=== PATIENT | female | born 1990 | race Caucasian/White ===

== ENCOUNTER 2025-03-28 01:50 | Inpatient (IN) | payer SELFPAY ==
[2025-03-28] VITALS (26 sets, daily range): BP systolic 90–138; BP diastolic 44–77; PULSE 51–92; RESP 15–24; TEMP 36.3–37.2; O2SAT 90–100
--- NOTE | ~2025-03-28 | CT_ITS ---
CORRECTED REPORT corrected patients to 1991 [facility] 03/28/2025 This report was recreated on 03/28/25. Original report was CT abdomen pelvis w con Clinical History: Left flank pain . Comparison: None Technique: Axial images lung bases to symphysis pubis 100 mL Omnipaque 350 Coronal, sagittal reformats CT images acquired with automatic exposure control for dose reduction DLP: 398 mGy-cm Findings: Lung bases: Clear. Visualized heart and pericardium: Unremarkable. Liver: Unremarkable. Gallbladder: Unremarkable. Spleen: Unremarkable. Pancreas: Unremarkable. Adrenal glands: Unremarkable. Kidneys: Right kidney- No hydronephrosis. No renal stones. Left kidney- Hydronephrosis. No renal stones. Distal esophagus/stomach: Unremarkable. Small bowel loops: Normal caliber and wall thickness. Colon: Normal caliber and wall thickness. Normal RLQ appendix. Nodes: No enlarged nodes. Peritoneum: No ascites. No free air. Urinary bladder: 3 mm stone left UVJ. Uterus: Unremarkable. Adnexa: No masses. Trace pelvic free fluid. Bones: No acute bony abnormality. Soft tissues: Unremarkable. Aorta: No aneurysm or dissection. IVC: Unremarkable. Main portal vein/SMV/splenic vein: Patent. IMPRESSION: 1. Obstructing 3 mm stone left UVJ. Reviewed, dictated and finalized at location R.
--- NOTE | ~2025-03-28 | XR_ITS ---
EXAMINATION: XR retrograde pyelo w/stent LT DATE: 03/28/2025 08:35 INDICATION: Left flank pain. Cystoscopy. TECHNIQUE: 3 fluoroscopic images of the abdomen and pelvis were obtained during procedure performed by Dr. Sierra. Radiologist was not present for the imaging or procedure. The amount of fluoroscopy time used during this procedure was 0.2 minutes. Total DAP was 0.132 mGym^2. COMPARISON: CT dated 03/28/2025 FINDINGS: Initial image demonstrates a wire advanced retrograde along the left ureter into the left renal pelvis. Subsequent images demonstrate placement of a left intraureteral stent with loops formed in the left renal pelvis and in the bladder. There is some contrast within the bladder related to the earlier c ontrast-enhanced CT. IMPRESSION: 1. Patient of a left intraureteral stent which is in expected position. See procedure note for further detail. Reviewed, dictated and finalized at location A. IMPRESSION: 1. Patient of a left intraureteral stent which is in expected position. See pro cedure note for further detail.
[2025-03-28] MEDS: cefTRIAXone 2 GM in SODIUM CHLORIDE 0.9% IV 100 ML 200 ML IVPB (03:50)
[2025-03-28 04:28] LABS: Hematocrit 36.5 % (37.0-47.0); Hemoglobin 12.7 g/dL (12.0-15.0); INR 1.0; Immature Granulocyte Percent A 0.5 % (0-0.5); Lymphocytes Absolute Auto 2.65 K/mm3 (0.9-3.2); Mean Corpuscular HGB Conc 34.8 g/dl (32-36); Mean Corpuscular Hemoglobin 31.0 pg (26-34); Mean Corpuscular Volume 89.0 fl (80-100); Nucleated Red Blood Cells Absolute Auto 0.000 K/mm3 (0.0-0.012); Nucleated Red Blood Cells Perc 0.0 % (0.0-0.2); Partial Thromboplastin Time 26.8 Seconds (22.3-36.8); Platelet Count Result 351 k/mm3 (150-375); Prothrombin Time 13.4 Seconds (11.1-14.7); Red Blood Count 4.10 M/mm3 (4.2-5.4); White Blood Count 15.4 K/mm3 (4.5-10.0)
[2025-03-28 04:29] LABS: Alanine Aminotransferase 27 U/L (6-35); Albumin Level 4.5 g/dL (3.5-5.1); Alkaline Phosphatase 121 U/L (38-126); Anion Gap 18 mmol/L (4-12); Aspartate Amino Transferase 30 U/L (14-36); Beta HCG Quantitative < 2.39 mIU/ML; Bilirubin,Total 0.4 mg/dL (0.2-1.3); Blood Urea Nitrogen 14 mg/dL (7-17); Calcium 9.2 mg/dL (8.4-10.2); Carbon Dioxide 13 mmol/L (22-30); Chloride 108 mmol/L (98-107); Estimated Glomerular Filt Rate > 60; Glucose 194 mg/dL (65-110); Sodium 139 mmol/L (137-145); Total Protein 7.7 g/dL (6.3-8.2)
[2025-03-28 04:31] LABS: Potassium 2.7 mmol/L (3.4-5.0)
--- NOTE | 2025-03-28 04:33 | ED_ITS ---
HPI - Abdominal Pain General Chief Complaint: Abdominal Pain Stated Complaint: Abd Pain History of Present Illness HPI narrative: Patient seen and evaluated during EMR down time in the emergency department. Please refer to the physical down time paper charting for complete dictation of patient's care and clinical course. Review of Systems 2 Review of Systems: As reviewed in the physical paper turning during down time Exam 2 Narrative: GENERAL: Acute moderate distress complaining of significant pain her back and left-sided flank. HEAD: [Normocephalic, atraumatic.] EYES: [PERRLA and EOMI.] ENT: Nares clear, no rhinorrhea or epistaxis. Mucous membranes moist. NECK: Supple. CHEST: [Clear to auscultation. No respiratory distress.] HEART: [Regular rate and rhythm]. No murmur heard. [Normal peripheral pulses.] ABDOMEN: [Soft, nondistended], left CVA tenderness, no overlying skin changes or deformity. No upper abdominal or lower quadrant tenderness., [No rigidity or guarding] EXTREMITIES: Normal range of motion. [No edema.] SKIN: Warm, dry, no rash. NEURO: [No focal deficits]. Alert and oriented [x3.] PSYCH: [Normal mood and affect.] Course Vital Signs Vital signs: Vital Signs Temperature 36.5 C 03/28/25 02:15 Pulse Rate 78 03/28/25 02:15 Respiratory Rate 24 H 03/28/25 02:15 Blood Pressure 111/70 03/28/25 02:15 Pulse Oximetry 98 03/28/25 02:15 Temperature 36.5 C 03/28/25 02:15 Pulse Rate 78 03/28/25 02:15 Respiratory Rate 24 H 03/28/25 02:15 Blood Pressure 90/44 L 03/28/25 06:50 Pulse Oximetry 100 03/28/25 06:50 MDM - Abdominal Pain MDM Narrative Medical decision making narrative: Patient seen and evaluated during EMR down time in the emergency department. Please refer to the physical down time paper charting for complete dictation of patient's care and clinical course. Patient CT scan shows obstructing 3 mm stone in the left UVJ. Patient had improvement in pain after Toradol and morphine as well as fluids. Appear septic with elevated lactic acid of 6.0 in white count of 15.4. Bacteria and white blood cells in the urine. Started on Rocephin. Urology consulted for stent placement and further care. Spoke to Dr. Palomino. Patient made NPO for acute add-on stent case this morning, will remain in the emergency department to go the operating room this morning. Patient care signed out to morning physician pending OR. Lab Data 03/28/25 02:42 03/28/25 02:42 Labs: Lab Results 03/28/25 03/28/25 Range/Units 02:42 03:35 WBC 15.4 H (4.5-10.0) K/mm3 RBC 4.10 L (4.2-5.4) M/mm3 Hgb 12.7 (12.0-15.0) g/dL Hct 36.5 L (37.0-47.0) % MCV 89.0 (80-100) fl MCH 31.0 (26-34) pg MCHC 34.8 (32-36) g/dl RDW 12.2 (11.5-14.5) % Plt Count 351 (150-375) k/mm3 MPV 9.4 (7.4-10.4) fl Immature Gran % (Auto) 0.5 (0-0.5) % Neut % (Auto) 75.5 H (45.5-73.1) % Lymph % (Auto) 17.3 L (18.3-44.2) % [place] % (Auto) 5.9 (2.6-8.5) % Eos % (Auto) 0.5 (0-4.4) % Baso % (Auto) 0.3 (0.2-1.2) % Lymph # (Auto) 2.65 (0.9-3.2) K/mm3 [place] # (Auto) 0.9 H (0.1-0.6) K/mm3 Eos # (Auto) 0.1 (0-0.3) K/mm3 Baso # (Auto) 0.0 (0.0-0.1) K/mm3 Abs Immat Gran (auto) 0.08 H (0.00-0.031) K/mm3 Absolute Neuts (auto) 11.6 H (1.3-6.7) K/mm3 Absolute Nucleated RBC 0.000 (0.0-0.012) K/mm3 Nucleated RBC % 0.0 (0.0-0.2) % PT 13.4 (11.1-14.7) Seconds INR 1.0 APTT 26.8 (22.3-36.8) Seconds Sodium 139 (137-145) mmol/L Potassium 2.7 L* (3.4-5.0) mmol/L Chloride 108 H (98-107) mmol/L Carbon Dioxide 13 L (22-30) mmol/L Anion Gap 18 H (4-12) mmol/L BUN 14 (7-17) mg/dL Creatinine 0.69 L (0.7-1.0) mg/dL Estim Creat Clear Calc Not Reportable Estimated GFR > 60 (59 - ) Glucose 194 H (65-110) mg/dL Lactic Acid 6.0 H* (0.7-2.0) mmol/L Calcium 9.2 (8.4-10.2) mg/dL Total Bilirubin 0.4 (0.2-1.3) mg/dL AST 30 (14-36) U/L ALT 27 (6-35) U/L Alkaline Phosphatase 121 (38-126) U/L Total Protein 7.7 (6.3-8.2) g/dL Albumin 4.5 (3.5-5.1) g/dL Beta HCG, Quant < 2.39 mIU/ML Urine Color Yellow (Yellow) Urine Appearance Cloudy H (Clear) Urine pH 5.0 (5.0-9.0) Ur Specific [place] 1.026 (1.001-1.035) Urine Protein Trace (Negative) mg/dL Urine Glucose (UA) Negative (Negative) mg/dL Urine Ketones 4+ H (Negative) mg/dL Ur Blood (Man) 2+ H (Negative) Urine Nitrate Negative (Negative) Urine Bilirubin Negative (Negative) Urine Urobilinogen 0.2 (<2.0) mg/dL Leukocyte Esterase Rfl 1+ H (Negative) EVITA/UL Urine RBC 11-20 H (0-2) /hpf Urine WBC 11-20 H (0-3) /hpf Ur Squamous Epith Cells Many H (Few) /hpf Urine Bacteria 2+ H /hpf Urine Casts 0-2 Critical Care Time Critical Care Time Critical Care Time: Yes Total Critical Care Time: 35 Discharge Plan Discharge Clinical Impression: Hydronephrosis with renal calculous obstruction, Acidosis, lactic, Leukocytosis, UTI (urinary tract infection) Patient Disposition: Still a Patient Condition: Stable Time of Disposition: 06:00
[2025-03-28 04:38] LABS: Add Urine Microscopic? YES; Appearance Urine Cloudy (Clear); Glucose Urine UA Negative (Negative); Leukocyte Esterase Ur 1+ LEU/UL (Negative); Nitrate Urine Negative (Negative); Non Pathogenic Casts 0-2; Specific Grav Ur 1.026 (1.001-1.035)
--- NOTE | 2025-03-28 05:56 | PC.NURSE ---
blood cultures ordered after iv abx ordered/given during down time. EDP Aware and still would like blood cultures to be obtained.
[2025-03-28] MEDS: SODIUM CHLORIDE 0.9% IV 1,000 ML 999 ML IV CONT ×2 (06:04)
--- NOTE | 2025-03-28 07:14 | P.HP_ITS ---
H&P: HPI History of Present Illness Date/Time: 03/28/25 07:14 Chief Complaint: left flank pain Narrative: Patient is a 34-year-old female without prior significant urological history and without history of urolithiasis who presents the emergency department acute left renal colic. She denies fevers chills gross hematuria has had some irritable voiding symptoms. Imaging demonstrates a 3mm left distal ureteral calculus. Urinalysis appears contaminated but may suggest urinary tract infection. Blood work is notable for elevated lactic acid and hypokalemia. Review of Systems Review of Systems: All systems reviewed & are unremarkable except as noted in HPI and below Cardiovascular: Cardiovascular: Denies chest pain, Denies lightheadedness, Denies palpitations and Denies dyspnea Respiratory: Respiratory: Denies dyspnea Gastrointestinal: Gastrointestinal: Denies diarrhea, Denies nausea and Denies vomiting Genitourinary: Genitourinary: Denies hematuria and Denies dysuria Endocrine: Endocrine: Denies palpitations Meds Vital Signs Vital Signs - 24 hr 03/28/25 02:15 03/28/25 06:49 03/28/25 06:50 Temperature 97.7 F Pulse Rate 78 Respiratory Rate 24 H Blood Pressure 111/70 90/44 L Pulse Oximetry 98 90 100 Exam Const: General: no acute distress Resp: Effort & Inspection: normal respiratory effort GI: Inspection: non-distended GI Palp: No abdominal tenderness and No Guarding due to palpation present (GI) Auscultation: normal bowel sounds H&P: Results Labs Labs: Short CBC 03/28/25 Range/Units 02:42 WBC 15.4 H (4.5-10.0) K/mm3 Hgb 12.7 (12.0-15.0) g/dL Hct 36.5 L (37.0-47.0) % Plt Count 351 (150-375) k/mm3 BMP 03/28/25 02:42 Sodium 139 Potassium 2.7 L* Chloride 108 H Carbon Dioxide 13 L BUN 14 Creatinine 0.69 L Glucose 194 H Calcium 9.2 Liver Function 03/28/25 Range/Units 02:42 Total Bilirubin 0.4 (0.2-1.3) mg/dL AST 30 (14-36) U/L ALT 27 (6-35) U/L Alkaline Phosphatase 121 (38-126) U/L Albumin 4.5 (3.5-5.1) g/dL Urine 03/28/25 Range/Units 03:35 Urine Color Yellow (Yellow) Urine Appearance Cloudy H (Clear) Urine pH 5.0 (5.0-9.0) Ur Specific [place] 1.026 (1.001-1.035) Urine Protein Trace (Negative) mg/dL Urine Glucose (UA) Negative (Negative) mg/dL Assessment and Plan Assessment and plan (1) Hydronephrosis with renal calculous obstruction: Code(s): N13.2 - Hydronephrosis with renal and ureteral calculous obstruction Status: Acute (2) Acidosis, lactic: Code(s): E87.20 - Acidosis, unspecified Status: Acute (3) UTI (urinary tract infection): Code(s): N39.0 - Urinary tract infection, site not specified Status: Acute Assessment and Plan: * Cystoscopy, left ureteroscopy with stone extraction, possible laser lithotripsy, retrograde pyelogram and stent placement
--- NOTE | 2025-03-28 07:18 | WPDHPUPDATE1 ---
History and Physical Update Update Date/Time: 03/28/25 07:18 History and Physical has been reviewed, including an updated exam of the patient. There are NO changes in the patient's condition. Risks, benefits, and alternatives have been discussed and questions answered. Patient agrees to proceed with procedure.
[2025-03-28] MEDS: LACTATED RINGERS 1,000 ML 30 ML IV CONT ×2 (08:02→11:00)
--- NOTE | 2025-03-28 08:10 | P.PNAN_ITS ---
Anes - Initial Pre Proc Eval Procedure: Operation Date: 03/28/25 08:00 Proposed Procedures p Cystoscopy, Possible Left Retrograde Pyelogram, Possible Left Stone Extraction, Possible Left Stent Placement, Possible Left Holmium Laser Lithotripsy(Left) - Elfego Sierra MD Date/Time: 03/28/25 08:10 Surgeon: Parker Palomino MD Pre Op Diagnosis: Abd Pain Patient Data Age: 34 Gender: F Height: Weight: Last Vital Signs Temp 36.5 C 03/28/25 02:15 Pulse 78 03/28/25 02:15 Resp 24 H 03/28/25 02:15 BP 110/71 03/28/25 07:31 Pulse Ox 99 03/28/25 07:31 Allergies Allergy/AdvReac Type Severity Reaction Status Date / Time No Known Allergies Allergy Verified 03/28/25 07:23 Laboratory Tests 03/28/25 03/28/25 03/28/25 02:42 03:35 07:18 WBC 15.4 H K/mm3 (4.5-10.0) RBC 4.10 L M/mm3 (4.2-5.4) Hgb 12.7 g/dL (12.0-15.0) Hct 36.5 L % (37.0-47.0) MCV 89.0 fl (80-100) MCH 31.0 pg (26-34) MCHC 34.8 g/dl (32-36) RDW 12.2 % (11.5-14.5) Plt Count 351 k/mm3 (150-375) MPV 9.4 fl (7.4-10.4) Immature Gran % (Auto) 0.5 % (0-0.5) Neut % (Auto) 75.5 H % (45.5-73.1) Lymph % (Auto) 17.3 L % (18.3-44.2) [place] % (Auto) 5.9 % (2.6-8.5) Eos % (Auto) 0.5 % (0-4.4) Baso % (Auto) 0.3 % (0.2-1.2) Lymph # (Auto) 2.65 K/mm3 (0.9-3.2) [place] # (Auto) 0.9 H K/mm3 (0.1-0.6) Eos # (Auto) 0.1 K/mm3 (0-0.3) Baso # (Auto) 0.0 K/mm3 (0.0-0.1) Abs Immat Gran (auto) 0.08 H K/mm3 (0.00-0.031) Absolute Neuts (auto) 11.6 H K/mm3 (1.3-6.7) Absolute Nucleated RBC 0.000 K/mm3 (0.0-0.012) Nucleated RBC % 0.0 % (0.0-0.2) PT 13.4 Seconds (11.1-14.7) INR 1.0 APTT 26.8 Seconds (22.3-36.8) Sodium 139 mmol/L (137-145) Potassium 2.7 L* mmol/L (3.4-5.0) Chloride 108 H mmol/L (98-107) Carbon Dioxide 13 L mmol/L (22-30) Anion Gap 18 H mmol/L (4-12) BUN 14 mg/dL (7-17) Creatinine 0.69 L mg/dL (0.7-1.0) Estim Creat Clear Calc Not Reportable Estimated GFR > 60 (59 - ) Glucose 194 H mg/dL (65-110) Lactic Acid 6.0 H* mmol/L 2.3 H mmol/L (0.7-2.0) (0.7-2.0) Calcium 9.2 mg/dL (8.4-10.2) Total Bilirubin 0.4 mg/dL (0.2-1.3) AST 30 U/L (14-36) ALT 27 U/L (6-35) Alkaline Phosphatase 121 U/L (38-126) Total Protein 7.7 g/dL (6.3-8.2) Albumin 4.5 g/dL (3.5-5.1) Beta HCG, Quant < 2.39 mIU/ML Urine Color Yellow (Yellow) Urine Appearance Cloudy H (Clear) Urine pH 5.0 (5.0-9.0) Ur Specific [place] 1.026 (1.001-1.035) Urine Protein Trace mg/dL (Negative) Urine Glucose (UA) Negative mg/dL (Negative) Urine Ketones 4+ H mg/dL (Negative) Ur Blood (Man) 2+ H (Negative) Urine Nitrate Negative (Negative) Urine Bilirubin Negative (Negative) Urine Urobilinogen 0.2 mg/dL (<2.0) Leukocyte Esterase Rfl 1+ H EVITA/UL (Negative) Urine RBC 11-20 H /hpf (0-2) Urine WBC 11-20 H /hpf (0-3) Ur Squamous Epith Cells Many H /hpf (Few) Urine Bacteria 2+ H /hpf Urine Casts 0-2 Patient hx anesthesia problems: none Family hx anesthesia problems: none Results Review: All pre-operative results and documents have been reviewed as part of the pre- operative evaluation. Anes - Eval Final PreProcedure Day of Procedure 03/28/25 08:10 Patient weight: obese Heart: regular rate and rhythm Lungs: clear to auscultation Airway: Mallampati scale class II Neurological: alert and oriented Last oral intake: >/= 8 hours ASA classification: III Emergent: yes Anesthetic plan: proceed Anesthesia type and monitoring: general GIVS and standard monitoring Results Review: All pre-operative results and documents have been reviewed as part of the pre- operative evaluation. Informed Consent: The patient's anesthetic plan and its attendant risks and benefits were discussed with the patient/family/POA. Questions were solicited and answers provided to the satisfaction of the patient/family/POA.
--- NOTE | 2025-03-28 08:30 | S_PTH ---
PATIENT: Yessenia Sellers LOC: [id number] U#:[id number] AGE/SX: 34/F ROOM: 301 RE03/28/[address]: Elfego Sierra MD : 1990 BED: 01 DIS: 03/28/2025 SPEC #: [id number] RECD: 03/28/25 09:45 STATUS: REINA REQ #: [id number] DIANA: 03/28/25 08:[address]: Elfego Sierra DEPT: [facility] Surgical RECD BY: Mckayla Mtz ENTERED: 03/28/25 09:45 SP TYPE: Surgical OTHR DR: MD Parker Arroyo MD UNKNOWN,DOCTOR Tissues: A - Stone Procedures: Gross Exam Level 1 Crystalline Analysis
[2025-03-28] MEDS: LIDOCAINE 2% GEL UROJET 10 ML PKG MUCOUS MEM (08:32)
--- NOTE | 2025-03-28 08:32 | W.PM.PROC2 ---
Procedure Note - Detailed Date of Procedure 03/28/25 Pre-op Diagnosis Left ureteral stone Post-op Diagnosis Same Procedure Performed Cystoscopy, left ureteroscopy with stone extraction, left ureteral stent placement Surgeon Elfego Sierra MD Anesthesia MAC Description of Procedure The patient was brought to the operative suite where she is prepped and draped in a routine sterile fashion while in the dorsal lithotomy position after the uneventful induction of systemic sedation. 2% lidocaine jelly was placed in the urethra and allowed to stand for an appropriate period of time. A 19F rigid cystoscope was placed in the bladder. The patient had no evidence of urethral stricture or bladder neck contracture. The bladder mucosa was endoscopically normal without hyperemia or neoplasm. There was a single, orthotopic ureteral orifice bilaterally. A 0.035 glidewire was advanced into the left renal pelvis under fluoroscopy. The distal ureter was dilated with an 8F/10F ureteral dilator. Ureteroscopy was undertaken with a short tapered semi-rigid ureteroscope and I was able to extract the stone with ease using a 1.9F Escape disposable stone basket. Due to the potential of an inter urinary tract infection I opted to place a 4.8 F variable length ureteral stent.. The proximal coil of the stent was confirmed to be in the renal pelvis and the distal coil in the bladder. The patient's bladder was emptied and she was taken to the recovery room having tolerated this procedure well. Pathology Yes Complications No immediate complications Condition Stable
[2025-03-28] MEDS: POTASSIUM CHLORIDE INJ 40 MEQ in SODIUM CHLORIDE 0.9% IV 500 ML 130 MEQ IVPB (08:55)
[2025-03-28] MEDS: oxyCODONE HCL (*CRX) 5 MG TAB IR PO (10:52)
[2025-03-28] MEDS: ONDANSETRON INJ 4 MG/2 ML VIAL IV PUSH (11:07)
[2025-03-28] MEDS: fentaNYL CITRATE INJ (*CRX) 100 MCG/2 ML VIAL 25 MCG IV PUSH (11:33)
--- NOTE | 2025-03-28 13:01 | ADMGEN ---
This patient, Yessenia Sellers, was admitted to [address] [facility] Surg Room 301-01. Patient/family oriented to hospital policies and general routines including ID bracelet, bed and alarms, visiting hours, pain management, procedures, bathroom and other care routines, personal items, smoking policy, room service/diet, and visiting hours. Information on how to activate the Rapid Response Team has been discussed. Patient/Family are encouraged to report perceived risks to care and to ask questions if they do not understand what they are told or what they should do. This nurse got report from Augustine in the PACU.
--- NOTE | 2025-03-28 13:39 | P.CONIM_ITS ---
Assessment and Plan Assessment and plan (1) Hydronephrosis with renal calculous obstruction: Code(s): N13.2 - Hydronephrosis with renal and ureteral calculous obstruction <Felicia Jennings RAJ White - Last Filed: 03/28/25 15:33> Status: Acute <Felicia Jennings Christopher, GERIATRIC PHYSICAL THERAPIST - Last Filed: 03/28/25 15:33> Assessment and Plan: Status post Cystoscopy, left ureteroscopy with stone extraction, left ureteral stent placement on 03/28/2025 Urology is primary Pain management <Felicia White GERIATRIC PHYSICAL THERAPIST - Last Filed: 03/28/25 15:33> (2) Acidosis, lactic: Code(s): E87.20 - Acidosis, unspecified <Felicia Jennings Christopher, GERIATRIC PHYSICAL THERAPIST - Last Filed: 03/28/25 15:33> Status: Acute <Felicia Jennings Christopher, GERIATRIC PHYSICAL THERAPIST - Last Filed: 03/28/25 15:33> Assessment and Plan: 6.3 on admission with 2.3 after hydration Continue IVF A.m. labs Blood cultures pending L <Felicia DilanJossue White GERIATRIC PHYSICAL THERAPIST - Last Filed: 03/28/25 15:33> 6.3 on admission with 2.3 after hydration Continue IVF A.m. labs Blood cultures pending Continue IV Rocephin <Bhavik Brown MD - Last Filed: 03/28/25 15:32> (3) UTI (urinary tract infection): Code(s): N39.0 - Urinary tract infection, site not specified <Felicia White APRN - Last Filed: 03/28/25 15:33> Status: Acute <Felicia White APRN - Last Filed: 03/28/25 15:33> Assessment and Plan: IV Rocephin Cultures and sensitivities pending <Felicia White APRN - Last Filed: 03/28/25 15:33> Assessment and Plan: Hypokalemia severe will recheck again <Bhavik Brown MD - Last Filed: 03/28/25 15:32> HPI Date of Consult Consult date: 03/28/25 <Felicia White APRN - Last Filed: 03/28/25 15:33> 03/28/25 <Bhavik Brown MD - Last Filed: 03/28/25 15:32> Requesting Physician: Parker Palomino MD <Felicia White APRN - Last Filed: 03/28/25 15:33> Primary Care Provider: UNKNOWN,DOCTOR <Felicia White APRN - Last Filed: 03/28/25 15:33> Consult Narrative Reason for consult: Medical Management <Felicia White APRN - Last Filed: 03/28/25 15:33> Narrative: Yessenia Sellers is a 34 year old female presented to the emergency department with acute left renal colic found to have a 3 mm left distal ureteral calculus. Patient underwent a cystoscope with left urethral scope with stone extraction and left stent placement. Hospitalist team has been consulted for medical management. Patient was started on Rocephin in the emergency room for possible UTI and given 2 L IV fluids. Lab work in the ED shows leukocytosis at 15.4, potassium of 2.7, carbon dioxide 13 anion gap 18, creatinine of 0.69, glucose of 194, lactic acid of 6 followed by 2.3 UA is cloudy with 1+ leukocyte esterase 11-20 wbc's many epithelial cells and 2+ bacteria. Culture and sensitivity. Due to leukocytosis will continue Rocephin. <Felicia White APRN - Last Filed: 03/28/25 15:33> Review of Systems 2 Review of Systems: 12 systems were reviewed and are negativ e except for as per HPI. <Felicia White APRN - Last Filed: 03/28/25 15:33> - CONSTITUTIONAL: Denies weight loss, fe nuno and chills. - HEENT: Denies changes in vision and he aring - RESPIRATORY: Denies SOB and cough. - CV: Denies palpitations and CP. - GI: Denies abdominal pain, nausea, vom iting and diarrhea. - : Reports dysuria and urinary frequ ency. - MSK: Denies myalgia and joint pain. - SKIN: Denies rash and pruritus. - NEUROLOGICAL: Denies headache and sync ope. - PSYCHIATRIC: Denies recent changes in mood. Denies anxiety and depression. <Bhavik Brown MD - Last Filed: 03/28/25 15:32> [facility] Social History Social History: Social History Smoking status: Former smoker Tobacco type: cigarettes Smoking end date: 03/28/12 Alcohol intake: never Substance use: current Substance use type: marijuana Last use: 03/28/25 Lack of Transportation: No Lack of Food: Sometimes True Current Housing: I Have Housing Concerned About Future Housing: No Difficulty Paying Gas/Electric Bills: YES Difficulty Paying for Meds: No Currently Unemployed: No Education: Don't Know Difficulty w/ Childcare or Family Care: No Spiritual care concerns: No <Felicia White APRN - Last Filed: 03/28/25 15:33> Meds Home Medications and Allergies Allergies/Adverse reactions: Allergies Allergy/AdvReac Type Severity Reaction Status Date / Time latex Allergy Mild Rash Verified 03/28/25 13:07 codeine AdvReac Severe Dizziness Verified 03/28/25 13:07 <Felicia White APRN - Last Filed: 03/28/25 15:33> Vital Signs Vital Signs - 24 hr 03/28/25 02:15 03/28/25 06:49 03/28/25 06:50 Temperature 97.7 F Pulse Rate 78 Respiratory Rate 24 H Blood Pressure 111/70 90/44 L Pulse Oximetry 98 90 100 Oxygen Delivery 03/28/25 06:51 03/28/25 07:00 03/28/25 07:01 Temperature Pulse Rate Respiratory Rate Blood Pressure 90/48 L Pulse Oximetry 99 100 100 Oxygen Delivery 03/28/25 07:16 03/28/25 07:17 03/28/25 07:30 Temperature Pulse Rate Respiratory Rate Blood Pressure 108/61 Pulse Oximetry 100 100 99 Oxygen Delivery 03/28/25 07:31 03/28/25 08:02 03/28/25 08:38 Temperature 98.3 F 97.4 F L Pulse Rate 59 L 76 Respiratory Rate 16 18 Blood Pressure 110/71 105/69 113/77 Pulse Oximetry 99 100 100 Oxygen Delivery Room Air Room Air 03/28/25 08:50 03/28/25 09:05 03/28/25 09:20 Temperature Pulse Rate 60 61 68 Respiratory Rate 18 18 20 Blood Pressure 94/58 L 98/53 L 108/50 L Pulse Oximetry 97 97 100 Oxygen Delivery Room Air Room Air Room Air 03/28/25 09:35 03/28/25 10:00 03/28/25 10:30 Temperature 97.7 F Pulse Rate 92 63 81 Respiratory Rate 16 18 16 Blood Pressure 97/58 L 103/57 L 109/70 Pulse Oximetry 99 98 97 Oxygen Delivery Room Air Room Air Room Air 03/28/25 11:00 03/28/25 11:30 03/28/25 12:00 Temperature Pulse Rate 70 52 L 54 L Respiratory Rate 16 16 16 Blood Pressure 138/63 130/49 L 130/63 Pulse Oximetry 100 100 Oxygen Delivery Room Air Room Air Room Air 03/28/25 12:30 03/28/25 13:26 Temperature 99 F 98.0 F Pulse Rate 51 L 59 L Respiratory Rate 16 18 Blood Pressure 114/53 L 116/62 Pulse Oximetry 100 Oxygen Delivery <Felicia White APRN - Last Filed: 03/28/25 15:33> Exam 2 Narrative: General: well appearing, appears stated age. HEENT: normocephalic, atraumatic. Mucous membranes moist. EOMI, PERRLA, bilateral sclera anicteric, no conjunctival injection. Neck supple without JVD, lymphadenopathy, or bruit. Respiratory: clear to ascultation bilaterally. No rales/rhonic/wheezes. Cardiovascular: Regular rate and rhythm, normal S1-S2 upon ascultation. No murmurs, rubs, or clicks. PMI is nondisplaced, capillary refill less than 3 second. Abdomen: Soft, round, no pulsatile masses, nondistended and nontender. No rebound, no guarding. No CVA tenderness, no hepatosplenomegaly. Bowel sounds present to all four quadrants. No high pitch or tinkling sounds, resonant to percussion. Extremities: No cyanosis, clubbing, or edema present. Pulses are palpable 2/2. Active ROM to all four extremities. Neuro: Alert and orientated x 4. PERRLA. Cranial nerves 2-12 intact without focal deficit. Skin: Warm, dry, and intact, without rash, erythema, or lesion. Psych: pleasant, cooperative, normal speech, normal affect, no hallucinations, no dysarthia <Felicia White APRN - Last Filed: 03/28/25 15:33> GENERAL: The patient is well developed, not in acute distress HEENT: Nonicteric sclerae, PERRLA, EOMI. Oropharynx clear. Moist mucous membranes. Conjunctivae appear well perfused. CHEST: Chest wall is nontender. HEART: Regular rate and rhythm without murmur, rubs, or gallops LUNGS: Clear to auscultation bilaterally. no respiratory distress ABDOMEN: Soft, positive bowel sounds, non-tender, no organomegaly. SKIN: No rash, no excessive bruising, petechiae, or purpura. NEUROLOGIC: Cranial nerves II-XII intact, alert and oriented x 3, no gross motor deficits EXTREMITIES: no edema, cyanosis or clubbing <Bhavik Brown MD - Last Filed: 03/28/25 15:32> Results Labs CBC & Chem 7: 03/28/25 02:42 03/28/25 02:42 <Felicia White APRN - Last Filed: 03/28/25 15:33> Labs: Short CBC 03/28/25 Range/Units 02:42 WBC 15.4 H (4.5-10.0) K/mm3 Hgb 12.7 (12.0-15.0) g/dL Hct 36.5 L (37.0-47.0) % Plt Count 351 (150-375) k/mm3 BMP 03/28/25 02:42 Sodium 139 Potassium 2.7 L* Chloride 108 H Carbon Dioxide 13 L BUN 14 Creatinine 0.69 L Glucose 194 H Calcium 9.2 Liver Function 03/28/25 Range/Units 02:42 Total Bilirubin 0.4 (0.2-1.3) mg/dL AST 30 (14-36) U/L ALT 27 (6-35) U/L Alkaline Phosphatase 121 (38-126) U/L Albumin 4.5 (3.5-5.1) g/dL Urine 03/28/25 Range/Units 03:35 Urine Color Yellow (Yellow) Urine Appearance Cloudy H (Clear) Urine pH 5.0 (5.0-9.0) Ur Specific [place] 1.026 (1.001-1.035) Urine Protein Trace (Negative) mg/dL Urine Glucose (UA) Negative (Negative) mg/dL <Felicia White, GERIATRIC PHYSICAL THERAPIST - Last Filed: 03/28/25 15:33> Hospitalist MIPS Advance Care Plan I have confirmed that the patient's Advanced Care Plan is present, code status is documented, or surrogate decision maker is listed in patient medical record.: Yes <Bhavik Brown MD - Last Filed: 03/28/25 15:32> Medication Reconciliation I have utilized all available resources to obtain, update and review the patients current medications (includes all prescriptions, OTC, herbals, cannabis, and nutritional supplements).: Yes <Bhavik Brown MD - Last Filed: 03/28/25 15:32>
[2025-03-28] MEDS: KETOROLAC 15 MG/ML VIAL (*BKC) IV PUSH (14:11)
[2025-03-28] MEDS: SODIUM CHLORIDE 0.9% IV 1,000 ML 100 ML IV CONT (14:13)
[2025-03-28 17:42] LABS: Anion Gap 7 mmol/L (4-12); Blood Urea Nitrogen 6 mg/dL (7-17); Calcium 8.1 mg/dL (8.4-10.2); Carbon Dioxide 22 mmol/L (22-30); Chloride 109 mmol/L (98-107); Estimated Glomerular Filt Rate > 60; Glucose 107 mg/dL (65-110); Potassium 3.8 mmol/L (3.4-5.0); Sodium 138 mmol/L (137-145)
--- NOTE | 2025-03-29 00:37 | PC.NURSE ---
Patient asked could she go down to front entrance to get food from . She was informed it is not advised to leave unit with IV and we would go down to get items for her. Patient left unit to go outside, IV removed upon return. Patient oriented x4, stable condition.
== END 2025-03-28 20:15 | disposition left against medical advice (07) | DRG 446 ==
LOC: ANHED 06:00 → ANHSURGERY 06:15 → ANH3MEDSUR 03-31 14:57
PROVIDERS: Internal Medicine; Admitting Provider Urology; Emergency Provider Student in an Organized Health Care Education/Training Program; Visit Provider Urology
PROC: 0TC78ZZ Extirpation of Matter from Left Ureter, Via Natural or Artificial Opening Endoscopic (ICD-10-PCS; CPT 52352; principal; 2025-03-28 08:00)
DX: N13.6 Pyonephrosis (principal); E87.20 Acidosis, unspecified; E87.6 Hypokalemia; D72.829 Elevated white blood cell count, unspecified
CPT/HCPCS: 36415; 74177; 74420; 80048; 80053; 81001; 82365; 82948; 83605; 84702; 85025; 85610; 85730; 87040; 88300; 96365; 96366; 99285; A9270; C1769; C2617; J0696; J1200; J1885; J2405; J3010; J3480; J7030; J7040; J7120; Q9966; Q9967

== ENCOUNTER 2025-03-29 09:52 | Emergency (ER) | payer OTHER, SELFPAY ==
--- OUTSIDE RECORDS SUMMARY | 2025-03-29 09:54 | XMS_ITS | Clinical Summary ---
Author Organization [facility] Address [address] [place] [address] Care Team Providers Care Review Trainer Name Role Phone Bandar De Jesus MD Primary Care Provider Source Comments [facility],non-owned Affiliates and Associated Physician Practices is amultiple site organization consisting of ambulatory clinics and hospital sitesin [place], [place], [place] and [place]. This disclosure is being madepursuant to the Care Everywhere program and may not contain all information available regarding this patient. Last updated 18.[facility] Allergies Active Allergy Reactions Criticality Noted Date Comments Bee Venom Rash 05/20/2009 Skin Adhesives Rash Medium 09/20/2020 Medications * Be aware that medications may not be up to date on this document. Alwaysverify current medications with the patient. No known medications Active Problems Problem Noted Date Diagnosed Date Generalized anxiety disorder 08/12/2021 Recurrent major depressive disorder 08/12/2021 Resolved Problems Problem Noted Date Diagnosed Date Resolved Date Refused influenza vaccine 08/12/2021 with adoption planned 12/31/2013 05/06/2020 SGA (small for gestational age) 12/31/2013 05/06/2020 Overview (12/31/2013): 5%ile 12/31/13 Encounter for supervision of other normal 12/10/2013 05/06/2020 Overview (04/19/2015): H/H/ Plts: 11.1/32.4/171 GCT: 96 GBS neg 7/3 Immunizations Immunization Administration Dates Next Due DTP 04/13/1993,04/24/1992,02/21/1992 ,1991 DTaP VACCINE IM (6wk-6yrs) 08/08/1996 HIB-PRP-T 4 DOSE 01/12/1993,04/24/1992, 2,1991 Hep A Peds 3 Dose 06/23/1997,01/21/1997,10/31/18 97 HepB Unspecified formulation 08/08/1996,01/15/19 96,11/28/1995 MMR 08/08/1996,01/12/1993 POLIO OPV 04/13/1993,04/24/1992,02/21/1992 ,1991 TDAP (7yrs+) 08/22/2020,12/10/2013,08/09/2006 Family History Medical History Relation Name Comments Asthma Mother Cancer Paternal Grandfather Hypertension Paternal Grandmother Relation Name Status Comments Father Alive Mother Alive Paternal Grandfather Paternal Grandmother Sister Alive Social History Tobacco Use Types Packs/Day Years Used Date Smoking Tobacco: Former Cigarettes 0.3 10 0 08/31/2001 - 09/01/2011 Smokeless Tobacco: Never Tobacco Cessation:Counseling Given: Yes Alcohol Use Standard Drinks/Week Comments No 0 (1 standard drink = 0.6 oz pur e alcohol) rarely PHQ-2 Answer Date Recorded PHQ2 TOTAL SCORE 0 08/12/2021 Comments No Sex and Gender Information Value Date Recorded Sex Assigned at Female 08/24/2020 8:38 AM CDT Legal Sex Female 8:14 AM AIR CONDITIONING SERVICE TECHNICIAN Gender Identity Female 08/24/2020 8:38 AM CDT Sexual Orientation Bisexual 08/24/2020 8: 38 AM CDT Occupation Industry Job Start Date Job End Date [employer] Not on file Not on file Not on file Last Filed Vital Signs Vital Sign Reading Time Taken Comments Blood Pressure 125/77 08/12/2021 1:35 PM AIR CONDITIONING SERVICE TECHNICIAN Pulse 107 08/12/2021 1:35 PM AIR CONDITIONING SERVICE TECHNICIAN Temperature 36.7 C (98.1 F) 03/09/2021 1:51 PM CDT Respiratory Rate 20 08/12/2021 1:35 PM AIR CONDITIONING SERVICE TECHNICIAN Oxygen Saturation 100% 08/12/2021 1:35 PM AIR CONDITIONING SERVICE TECHNICIAN Inhaled Oxygen Concentration - - Weight 59.6 kg (131 lb 8 oz) 08/12/2021 1:35 PM AIR CONDITIONING SERVICE TECHNICIAN Height 167.6 cm (5' 6) 08/12/2021 1:35 PM AIR CONDITIONING SERVICE TECHNICIAN Body Mass Index 21.22 08/12/2021 1:35 PM AIR CONDITIONING SERVICE TECHNICIAN Plan of Treatment Health Maintenance Due Date Last Done Comments HIV SCREENING 10/11/2006 HEPATITIS C SCREENING 10/07/2009 HPV VACCINE (1 - 3-dose SCDM series) 10/11/2018 PAP SMEAR 05/12/2024 05/12/2021 (Done Outside Per Patient) DEPRESSION SCREENING 06/12/2024 COVID-19 VACCINE ( season) 2025 INFLUENZA VACCINE (#1) 2025 DTAP/TDAP/TD VACCINES (9 - Td or Tdap) 08/22/2030 08/22/2020, 12/10/2013, 08/09/2006, Additional history exists ZOSTER VACCINE (1 of 2) 10/11/2041 HIB VACCINE Completed 01/12/1993, 04/12, 02/21/1992, Additional history exists HEPATITIS B VACCINE Completed 08/08/1996, 01/16/1996, 11/28/1995 MENINGOCOCCAL (Group B) VACCINE SHARED DECISION-MAKING Aged Out No longer eligible based on patient's age to complete this topic MENINGOCOCCAL GROUPS A/C/Y/W VACCINE Aged Out No longer eligible based on patient's age to complete this topic PNEUMOCOCCAL VACCINE Aged Out No long er eligible based on patient's age to complete this topic Insurance [place] MEDICAID - [employer]NA [facility] Advance Directives * Full Code (Latest Code Status on File) Date Activated Date Inactivated Comments 12/31/2013 2:47 PM 01/02/2014 2:23 PM * Full Code Date Activated Date Inactivated Comments 08/17/2009 7:44 AM 08/20/2009 1:38 AM Care Teams Review Trainer Relationship Specialty Start Date End Date Bandar De Jesus MD [address] [id number] PCP - General Family Medicine 05/06/20
--- OUTSIDE RECORDS SUMMARY | 2025-03-29 09:54 | XMS_ITS | Clinical Summary ---
Author Organization [facility] Address [address] [address] Phone Care Team Providers Care Bus Aide Name Role Phone Kristin Mccabe MD Primary Care Provider Allergies Active Allergy Reactions Criticality Noted Date Comments Adhesive Rash Medium 09/20/2020 Venom-Honey Bee Rash Medium 05/20/2009 Medications butalbital-aceta minophen-caffein e (ESGIC) 50-325-40 mg per tablet Take 1 tablet by mouth every 4 (four) hours as needed 03/11/2020 Active IBUPROFEN IB ORAL Take by mouth Active Active Problems Problem Noted Date Diagnosed Date Personal history of tobacco use, presenting hazards to health 04/05/2022 Overview (04/05/2022): counseled to quit Generalized anxiety disorder 08/12/2021 Recurrent major depressive disorder 08/12/2021 Resolved Problems Problem Noted Date Diagnosed Date Resolved Date Folliculitis 04/05/2022 04/05/2022 Immunizations Immunization Administration Dates Next Due DTP 04/13/1993,04/24/1992,02/21/1992 ,1991 DTaP 08/08/1996 Hep A, 3 Dose 06/23/1997,01/21/1997,10/31/1996 Hep B, Unspecified 08/08/1996,01/16/1996, 996 Hib (PRP-T) 01/12/1993,04/24/1992,02/21/1992 ,1991 MMR 08/08/1996,01/12/1993 OPV 04/13/1993,04/24/1992,02/21/1992 ,1991 Tdap 08/22/2020,12/10/2013,08/09/2006 Surgical History Surgery Date Site/Laterality Comments WISDOM TOOTH EXTRACTION Medical History Medical History Date Comments Asthma no current issue s Anxiety Depression Family History Medical History Relation Name Comments No Known Problems Father Cancer Maternal Grandfather Niels Emphysema Maternal Grandmother smoker Schizophrenia Maternal Grandmother Asthma Mother September Bipolar disorder Mother September Coronary artery disease Mother September hear t attack around age 50. Has PPM Depression Mother September Cancer Paternal Grandfather metasta tic at Dx Blood Clot Paternal Grandmother Hypertension Paternal Grandmother No Known Problems Sister Relation Name Status Comments Father Alive Maternal Grandfather Niels Maternal Grandmother Mother September Alive Paternal Grandfather Paternal Grandmother Sister Alive Social History Tobacco Use Types Packs/Day Years Used Date Smoking Tobacco: Every Day Cigarillos Started: 2006 Smokeless Tobacco: Never Tobacco Cessation:Ready to Q uit: No; Counseling Given: Yes Comments:Medical marijuana daily mixed tobacco PHQ-2 Answer Date Recorded PHQ-2 Total Score (If total score is 3 or more points, staff should administer the PHQ-9) 3 04/05/2022 Comments No Sex and Gender Information Value Date Recorded Sex Assigned at Not on file Legal Sex Female 2:04 PM CDT Gender Identity Not on file Sexual Orientation Not on file Obstetrics History Last Filed Vital Signs Vital Sign Reading Time Taken Comments Blood Pressure 121/61 04/05/2022 8:21 AM CDT Pulse 106 04/05/2022 8:21 AM CDT Temperature - - Respiratory Rate - - Oxygen Saturation - - Inhaled Oxygen Concentration - - Weight 61.2 kg (135 lb) 04/05/2022 8:21 AM CDT Height 165.1 cm (5' 5) 04/05/2022 8:21 AM CDT Body Mass Index 22.47 04/05/2022 8:21 AM CDT Plan of Treatment Health Maintenance Due Date Last Done Comments Cervical Cancer Screening 1991 Hepatitis C Screening 1991 Varicella Vaccines (1 of 2 - 13+ 2-dose series) 10/11/2004 Regular Well Visit/Exam 18-64 10/11/2009 Pneumococcal vaccine <65 (1 of 2 - PCV) 10/11/2010 HPV Vaccines (1 - 3-dose SCD M series) 10/11/2018 Depression Screening 04/05/2023 04/05/2022, 04/05/20 Influenza Vaccine (#1) 2025 DTaP/Tdap/Td Vaccine (9 - Td or Tdap) 08/22/2030 08/22/2020, 12/10/2013, 08/09/2006, Additional history exists Hepatitis B Screening Completed 08/08/1996 , 01/16/1996, 11/28/1995 Insurance AETNA [facility] Care Teams Bus Aide Relationship Specialty Start Date End Date Kristin Mccabe MD PCP - General Family Practice 04/01/22
--- OUTSIDE RECORDS SUMMARY | 2025-03-29 09:54 | XMS_ITS | Data Portability ---
Author Organization [place] - [facility], Main Office Address [address] [place] [address] Care Team Providers Care Etl Data Architect Name Role Phone MOSHE RODRÍGUEZ Primary Care Provider Assessment No assessment recorded. Plan of Treatment Reminders Order Date Submit Date Provider Last Modified By Organization Details Last Modified Time Details Appointments Physical /Annual Wellness 30 2025 03:00P Racquel June NP Not available Not available Not available Lab varicell a-zoster igg Ab screen, serum 2024 025 [facility], [address] [place], [address], 03/03/2025 09:00:25 MMR immunity , serum [address] [facility], [address] [place], [address], 02/13/2025 09:49:55 hepatiti s B surface Ab, quantita tive, serum 2024 025 [facility], [address] [place], [address], 03/03/2025 09:00:25 CBC w/ auto diff 2024 025 [facility], [address] [place], [address], 03/03/2025 09:00:24 CMP, serum or plasma 2024 025 [facility], [address] [place], [address], 03/03/2025 09:00:24 lipid panel, serum 2024 025 [facility], [address] [place], [address], 03/03/2025 09:00:25 Referral ENT surgery referral - Please call patient to schedule an appointm ent. Thank you. 2024 025 [email or web address] Parker William MD, [address], [place], [address], 12/05/2024 08:44:59 dentist referral - Please call patient to schedule an appointm ent. Thank you. 2023 024 [email or web address] [facility], [address] [place], [address], 03/14/2024 18:47:46 oral & maxillof acial referral 2023 024 [email or web address] [facility], [address] [facility] , [place], [address], 03/14/2024 18:49:28 dermatol ogist referral - Please call patient to schedule an appointm ent. Thank you. 2023 024 [facility], [address] [facility], [address] [address], [place], [address], 11/05/2024 09:11:34 Procedures None recorded . Surgeries None recorded . Imaging CT, sinuses, w/wo contrast - Please call patient to schedule OON / [facility] 2024 025 [email or web address] [facility]), [address] [place], [address], 09/10/2024 11:19:10 Medication Orders amoxicil ruthie 875 mg-potas sium clavulan ate 125 mg tablet 2024 025 [facility][id number], [address] [place], [address], 02/13/2025 12:41:20 loratadi ne 10 mg tablet 2024 [facility] #[id number], [address] [place], [address], 09/05/2024 14:59:26 Patient TargetsNo targets recorded. Patient InstructionsNo instructions recorded. Reason for Referral Oral & Maxillofacial Referra l for Temporomandibular joint disorder TMJ Referring Physician: Moshe Rodríguez [facility], Encounter Date: 02/07/2024 Dentist Referral for Referra l needed establish care Please call patient to schedule an appointment. Thank you. Referring Physician: Moshe Rodríguez [facility], Encounter Date: 02/07/2024 Company Doctor Referral for S kin lesion lesion to left upper arm Please call patient to schedule an appointment. Thank you. Referring Physician: Moshe Rodríguez [facility], Encounter Date: 02/07/2024 ENT Surgery Referral for Chr onic maxillary sinusitis Please call patient to schedule an appointment. Thank you. Referring Physician: Carmita June [facility], Encounter Date: 09/05/2024 Results Created Date Observation Date Name Description Value Unit Range Abnormal Flag Note LastModifiedBy Organization Detail LastModifiedTime 04/15/20 24 04/09/2024 CT, sinus es, w/o contr ast No observ ation record ed. [email or web address] [facility] [address], [place], [address], 04/17/2024 10:36:42 04/17/20 24 04/17/2024 CT, sinus es, w/o contr ast No observ ation record ed. BARCODE [facility] [address], [place], [address], 04/17/2024 18:04:41 Result Notes None recorded. Problems Name Problem SNOMED Code Status Onset Date Resolution Date Notes Provider Name and Address Organization Details Recorded Time Tonsillar debris 394949732 Active 2022 Moshe Rodríguez [employer] [address], [address], [place], [address], [facility] 3 10:55:41 Arthritis 2592261 Active 2022 Moshe Rodríguez [employer] [address], [address], [place], [address], [facility] 3 10:59:54 Alleviating anxiety Active 2022 Moshe Rodríguez [employer] [address], [address], [place], [address], [facility] 3 11:00:04 Depressive disorder 62775561 Active 2022 Moshe Rodríguez [employer] [address], [address], [place], [address], [facility] 3 11:00:10 Acute tonsillitis 22517410 Active 2022 Moshe Rodríguez [employer] [address], [address], [place], [address], [facility] 3 17:20:44 Acute sinusitis 46550311 Active 2022 Vandana Worthington MD [address], [address], [place], [address], [facility] 3 15:04:00 Temporomandibu lar joint disorder 47959412 Active 2023 Moshe Rodríguez [employer] [address], [address], [place], [address], [facility] 4 08:55:56 Skin lesion 97186834 Active 2023 Moshe Rodríguez [employer] [address], [address], [place], [address], G[facility] 4 09:03:11 Chronic sinusitis 91219766 Active 2023 Namrata Solorzano RN null, [facility] 4 11:25:46 Arthritis of temporomandibu lar joint 40151838 Active 2023 Alexis Bello MD [address], [address], [place], [address], [facility] 4 11:35:56 Chronic maxillary sinusitis 34830035 Active 2024 JOSE Marino [address], [address], [place], [address], [facility] 5 14:54:16 Allergic rhinitis 65480337 Active 2024 JOSE Marino [address], [address], [place], [address], [facility] 5 14:55:55 Vaccine adverse reaction 399946385 Active 2024 JOSE Marino [address], [address], [place], [address], [facility] 5 12:39:50 Acute cellulitis Active 2024 JOSE Marino [address], [address], [place], [address], [facility] 5 11:29:12 Problem Notes None recorded. Procedures Surgical History Date Name Laterality Status Provider Name and Address Organization Details Recorded Time extraction of wisdom tooth completed Zacarias Georges RN [facility] 12/19/2022 10:36:46 Imaging Results None recorded. Procedure Notes None recorded. Medical Equipment None Reported. Allergies Allergen ID Allergen Name Allergen Category Reaction Reaction Severity Criticality Documentation Date Start Date Code Code System Note Provider Name and Address Organization Details Recorded Time 14618 latex environme nt,medica tion rash mild low 12/19/2022 77774 91 RxNorm ALYSE Morillo, [place] [facility] 3 10:35:27 Medications Name Sig Start Date Stop Date Status Note LastModified by Organization Details LastModified Time fluconazole 150 mg tablet TAKE 1 TABLET BY MOUTH RIGHT AWAY 02/06 completed Not Available Not Available Not Available prednisone 20 mg tablet TAKE 2 TABLETS BY MOUTH EVERY DAY FOR 5 DAYS 02/06 completed Not Available Not Available Not Available valacyclovir 500 mg tablet TAKE 1 TABLET BY MOUTH ONCE DAILY 01/11 completed Not Available Not Available Not Available amoxicillin 875 mg tablet TAKE 1 TABLET BY MOUTH EVERY 12 HOURS FOR 7 DAYS 02/06 completed Not Available Not Available Not Available mupirocin 2 % topical ointment APPLY 3 TIMES PER DAY FOR 7 DAYS 02/06 completed Not Available Not Available Not Available fluticasone propionate 50 mcg/actuatio n nasal spray,suspen huber USE 2 SPRAYS IN EACH NOSTRIL DAILY 02/06 completed Not Available Not Available Not Available loratadine 10 mg tablet TAKE 1 TABLET BY MOUTH EVERY DAY active Not Available Not Available No t Available amoxicillin 875 mg-potassium clavulanate 125 mg tablet TAKE 1 TABLET BY MOUTH EVERY 12 HOURS active Not Available Not Available No t Available Vitals Date Recorded Body height Body mass index (BMI) Body weight Body temperature Heart rate Oxygen saturation Oxygen saturation in Arterial blood by Pulse oximetry Pain severity - 0-10 verbal numeric rating [Score] - Reported Systolic And Diastolic Provider Name and Address Organization Details Last Updated DateTime 5 165.1 cm 26 kg/m2 62401.4 1 g 97.2 [degF] 110 /min 98 % 98 % 0 110/64 mm[Hg] Chelsie Cartwright MA [facility] 5 14:35:03 Date Recorded Body height Body mass index (BMI) Body weight Body temperature Heart rate Oxygen saturation Oxygen saturation in Arterial blood by Pulse oximetry Systolic And Diastolic Provider Name and Address Organization Details Last Updated DateTime 4 165.1 cm 25.1 kg/m2 28860.4 5 g 98.2 [degF] 109 /min 99 % 99 % 114/78 mm[Hg] Anna Christianson RN [facility] 4 08:49:21 Date Recorded Body height Body mass index (BMI) Body weight Body temperature Heart rate Oxygen saturation Oxygen saturation in Arterial blood by Pulse oximetry Systolic And Diastolic Provider Name and Address Organization Details Last Updated DateTime 165.1 cm 25.5 kg/m2 37792.6 3 g 97.9 [degF] 74 /min 97 % 97 % 108/62 mm[Hg] MARIA ANTONIA Raza [facility] [employer] [facility] 15:37:38 Date Recorded Body height Body mass index (BMI) Body weight Body temperature Provider Name and Address Organization Details Last Updated DateTime 03/13/2024 165.1 cm 25.5 kg/m2 22715.63 g 97.7 [degF] Namrata Solorzano RN [facility] [employer] [facility] 03/13/2024 11:12:14 Social History Question Answer Notes LastModified by Organizat ion Details LastModified Time Tobacco Smoking Status Never Smoker Chelsie Cartwright MA [facility], [facility] [employer] [facility] 09/05/2024 14:36:45 What Is Your Level Of Caffeine Consumption? Heavy Information not available 09/05/2024 In The 14 Days Before Symptom Onset, Have You Had Close Contact With A Laboratory-confir med COVID-19 While That Case Was Ill? No Information not available 09/05/2024 In The 14 Days Before Symptom Onset, Have You Had Close Contact With A Person Who Is Under Investigation For COVID-19 While That Person Was Ill? No Information not available 09/05/2024 What Type Of Diet Are You Following? REGULAR Information not available 09/05/2024 Which Illicit Or Recreational Drugs Have You Used? Marijuana Information not available 09/05/2024 Have There Been Any Changes To Your Family Or Social Situation? No Information no t available 09/05/2024 Do You Use Insect Repellent Routinely? No Information not available 09/05/2024 Where Do You Live? [facility] Information not available 09/05/2024 What Was The Date Of Your Most Recent Tobacco Screening? 09/05/2024 Information not available 09/05/2024 How Many Children Do You Have? 2 Information not available 09/05/2024 Do You Have Any Pets? Yes Information not available 09/05/2024 What Is Your Relationship Status? Single Information not available 09/05/2024 Do You Use Your Seat Belt Or Car Seat Routinely? Yes Information not available 09/05/2024 Do You Have Smoke And Carbon Monoxide Detectors In Your Home? Yes Information not available 09/05/2024 At What Age Did You Start Smoking Tobacco? 14 Information not available 09/05/2024 Are You Passively Exposed To Smoke? Yes Information no t available 09/05/2024 Are There Any Smokers In Your House? Yes Information not available 09/05/2024 Do You Participate In Social Media? Yes Information not available 09/05/2024 Do You Use Sunscreen Routinely? No Information not available 09/05/2024 Have You Recently Traveled Abroad? No Information not available 09/05/2024 Have You Used IV Drugs? No Information not available 09/05/2024 Are You Currently In School? No Information not available 09/05/2024 Do You Have Any Dietary Restrictions? No Information not available 09/05/2024 Sex: Unknown Functional Status Question Answer Note LastModified by Organizat ion Details LastModified Time Do you use any illicit or recreational drugs? Yes Information not available 09/05/2024 Do you or have you ever used any other forms of tobacco or nicotine? Yes cigarello s- 3 daily Information not available 09/05/2024 What is your level of alcohol consumption? Occasional [email or web address] Information not available 01/11/2023 Are you currently employed? No Information not available 09/05/2024 What is your exercise level? Occasional Information not available 09/05/2024 Mental Status Question Answer Note LastModified by Organization D etails LastModified Time Do you feel stressed (tense, restless, nervous, or anxious, or unable to sleep at night)? [id number] Information not available 09/05/2024 Family History Relationship Description Onset Age of this Age Resolved Age Notes LastModified by Organization Details LastModified Time Paternal Grandfather Family history of malignant neoplasm frivastorres Not available 08:43:12 Mother Heart disease [id number] Not available 03/2023 10:36:08 Notes:NO ENT Medical History Condition Response MRSA N BACK INJECTIONS N ALLERGIES/HAYFEVER N LUNG DISEASE/DISORDER N HISTORY OF DRUG ABUSE N INSOMNIA N ESRD N RADIATION / CHEMOTHERAPY N COPD N HIGH CHOLESTEROL / HYPERLIPIDEMIA N HYPERTHYROIDISM N PVD N BLOOD DISEASES N EAR OR HEARING PROBLEMS N HYPOTHYROIDISM N SHINGLES N BACK / NECK PROBLEMS N DEPRESSION (INCLUDING POST ) N HAVE YOU BEEN HOSPITALIZED OR SEEN IN [facility] ER IN THE PAST YEAR ? N FAILED BACK SYNDROME N STROKE/TIA N POLYCYSTIC OVARIES N OBESITY N ANEURYSM N HISTORY WITH COMPLICATIONS WITH ANESTHES IA ? N Do you have Advance directive? N USE OF BLOOD THINNERS N NO SIGNIFICANT PAST MEDICAL HISTORY N DIABETES, TYPE N VON WILLIBRAND'S DISEASE N PARATHYROID DISEASE N ENT N SEASONAL ALLERGIES N HEARTBURN / REFLUX N POST LAMINECTOMY SYNDROME N HEPATITIS / LIVER DISEASE N SLEEP DISORDER N ARTERIAL INSUFFICIENCY N SEIZURES/EPILEPSY N HEADACHES/MIGRAINES N CHF N PACEMAKER N DIZZINESS N AIDS/HIV N HEART DISEASE/HEART PROBLEMS N NEUROPSYCHOLOGICAL N HYPERTENSION N CANCER: SPECIFY N TOURETTE'S N BLOOD TRANSFUSION N ANEMIA/BLOOD DISORDER N ANESTHESIA COMPLICATIONS N CHRONIC EAR INFECTIONS N ATRIAL FIBRILLATION N AUTOIMMUNE DISEASE N TUBERCULOSIS N Gynecological History Statement/Question Response How many live births 2 Date of Last Pap Smear Current Control Method None Date of LMP 08/19/2024 Obstetrics History GPAL:G 2 P 2 0 0 2 Type Value Multiple Births 0 Full Term 2 Induced 0 Spontaneous 0 Premature 0 Living 2 Ectopics 0 Total 2 Immunizations Vaccine Type Date Status Note Provider Nam e and Address Organization Details Recorded Time Tdap 02/11/2025 MARIA ANTONIA Mejia, [place] [facility] 02/11/2025 17:05:12 Past Encounters Encounter ID Performer Location Encounter Start Date Encounter Closed Date Diagnosis/Indication Diagnosis SNOMED-CT Code Diagnosis ICD10 Code Diagnosis IMO Codes Diagnosis Note [id number] JOSE Rodney [facility] Primary Care [facility] [address] [facility] [address] [place] [address] 12/19/2022 10:29:07 12/19/2022 11:09:55 Tonsillar debris 197206028 J35.8 Notes recurrent issue with her tonsils (sore throats, tonsiliths , ear infections ). Has been seen by ENT in the past, but would like a new referral Adult [facility] examination 759197830 Z00.00 Declines bloodwork today. Encouraged fresh fruits and veggies and daily exercise. [id number] Alexis Bello MD [facility] [place] [address] [place] [address] 01/11/2023 10:25:55 01/11/2023 11:00:17 Acute tonsillitis 28732088 J03.90 [id number] Vandana Worthington MD [facility] Primary Care [facility] [address] [facility] [address] [place] [address] 03/30/2023 14:29:11 03/30/2023 15:12:35 Acute sinusitis 05857559 J01.90 [id number] Moshe Rodríguez [facility] Primary Care [facility] [address] [facility] [address] [place] [address] 02/07/2024 08:41:56 02/07/2024 09:08:13 Temporomandibular joint disorder 85597124 M26.609 grinding her teeth at nightdecli jovana muscle relaxerref erral given Referral needed [id number] 9 Z76.89 Skin lesion 94684615 L98 .9 [id number] Alexis Bello MD [facility] [place] [address] [place] [address] 03/13/2024 10:56:54 03/15/2024 14:42:43 Chronic sinusitis 13375199 J32.9 Arthritis of temporomandibular joint 50829315 M26.157 [id number] JOSE Marino [facility] Primary Care [facility] [address] [facility] [address] [facility] [place] [address] 09/05/2024 14:27:46 09/05/2024 15:04:50 Chronic maxillary sinusitis 31629687 J32.0 Allergic rhinitis 226331 04 J30.9 Adult heal th examination 316861565 Z00.00 Discussed medication compliance and routine follow up.Discuss ed healthy diet and routine exercise.Peg brothersiewed vaccine records and made recommenda tions as needed.Enc ouraged annual eye and dental exams, as well as twice yearly dental cleanings. Will check screening labs as listed below. Body mass index 25-29 - overweight 087516032 Z68.26 Weight: 156BMI: 26 [id number] JOSE Marino [facility] Primary Care [address] [place] [address] 02/11/2025 15:20:47 02/11/2025 16:25:15 Immunization status unknown 255224369 Z78.9 30970777 87115831 Will check for immunity as listed below. Requires a tetanus booster 107358409 Z23 176689 Will administer vaccine as listed below. [id number] JOSE Marino [facility] Primary Care [address] [place] [address] 02/13/2025 12:29:24 02/13/2025 13:51:17 Vaccine adverse reaction 883963427 T50.Z95A [id number] Will treat as listed below. Patient to follow up as needed. Acute cellulitis 9257845 009 L03.90 [id number] Health Concerns Section Related Observation LastModified by Organization Detai ls LastModified Time None Recorded Concern Status LastModified by Organization Details LastModified Time None Recorded Advance Directives Directive None Recorded Payers Insurance Date Sequence Insurance Name Policy Number Policy Duran Covered Member ID Duran Member ID Guarantor Name 02/21/2025 1 [employer] BETTER HEALTH OF [facility] ON OR AFTER 05/12/2020 (MEDICAID REPLACEMENT - HMO) Yessenia Sellesr [id number] Yessenia Sellers Notes Date Note Type Note Provider Name and Address Organization Details Recorded Time 02/07/2024 text/html pt is here for f/u JOSE Rodney [address] [facility], [facility] [address], [place], [address], [place] [facility] 02/07/2024 09:07:02 03/13/2024 text/html this patient has temporomandibular joint arthritis but does not wear a mouth guard at this time. She does have a history of multiple facial fractures does have recurrent left frontal pain. Alexis Bello MD [address], [place], [address], [facility] 03/13/2024 11:36:27 09/05/2024 text/html ROS as noted in the HPI Patient is a 33 year old female that presents to the office for annual wellness. Patient is requesting an ENT referral for a second opinion due to fluid build up in her left cheek. Patient reports having x-ray completed by oral surgeon and was told there was a fluid pocket in her sinus, patient follow up with ENT last year and was told there were no issues. Patient states she can suck in and spit it out so she knows there is something in there. labs- orderedPAP- UTDMammogram-age 40Flu- declinesCovid- declinesTdap-aware JOSE Marino [address], [place], [address], [place] 09/06/2024 16:02:52 02/11/2025 text/html Patient is a 34 year old female that presents to the office to discuss testing/immunizations needed for school. 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 Patient is needed immunizations updated or proof of immunity. Patient denies all concerns at this time. JOSE Marino [address], [place], [address], [facility] 02/11/2025 22:26:32 02/13/2025 text/html Patient is a 34 year old female that presents to the office for vaccine reaction. Patient had Boostrix administered on 02/11 at our office. Patient reports since injection she has had pain, redness, swelling and warmth to the posterior aspect of left upper arm where injection was administered. JOSE Marino [address], [place], [address], [facility] 03/28/2025 11:29:23 OBGyn Episode No OBEpisode recorded.
--- OUTSIDE RECORDS SUMMARY | 2025-03-29 09:54 | XMS_ITS | Encounter Summary ---
Author Organization [facility] Health Address [address] [place] [address] Care Team Providers Care Feather Separator Name Role Phone Bandar De Jesus MD Primary Care Provider [phone] Bandar De Jesus MD Unavailable [phone] Reason for Visit * Reason Onset Date Comments Patient Requested Call 09/26/2020 Encounter Details Date Type Department Care Team (Late st Contact Info) Description 09/26/2020 Telephone [facility] Urgent Care [facility] [facility], [address] [place] [address] Vero Strange W, [facility] [address] [place] [address] Patient Requested Call Social History Tobacco Use Types Packs/Day Years Used Date Smoking Tobacco: Former Cigarettes 0.3 10 0 08/31/2001 - 09/01/2011 Smokeless Tobacco: Never Alcohol Use Standard Drinks/Week Comments No 0 (1 standard drink = 0.6 oz pur e alcohol) rarely Comments No Sex and Gender Information Value Date Recorded Sex Assigned at Female 08/24/2020 8:38 AM CDT Legal Sex Female 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 No / Unsure 09/25/2020 10:50 AM CDT documented as of this encounter Functional Status * Is person deaf or have serious hearing difficulty? Answer Date of Assessment Author No 12/31/2013 1:08 PM CDT Westlye Puentes RN * Is person blind or have serious difficulty seeing? Answer Date of Assessment Author No 12/31/2013 1:08 PM CDT Westley Puentes RN * Does person have serious difficulty walking/climbing stairs? Answer Date of Assessment Author No 12/31/2013 1:08 PM CDT Westley Puentes RN * Does person have difficulty dressing/bathing? Answer Date of Assessment Author No 12/31/2013 1:08 PM CDT Westley Puentes RN * Does person have difficulty doing errands alone? Answer Date of Assessment Author No 12/31/2013 1:08 PM CDT Westley Puentes RN documented as of this encounter Mental Status * Does person have difficulty concentrating/remembering/making decisions? Answer Entry Date Author No 12/31/2013 1:08 PM CDT Westley Puentes RN documented in this encounter Miscellaneous Notes * Telephone Encounter - Pattie Wilkerson - 09/26/2020 11:49 AM CDT Who is calling? self What is the reason for call? PATIENT CALLED. WAS SEEN YESTERDAY FOR A FEVER, VOMITING. GAVE HER MEDICATION. STILL HAVE FEVER 104 AN HOUR AGO. AND TOOK IT WHEN SHE WAS ON THE PHONE WITH ME. NOW AND DRY HEAVING. Expected Response from the Clinic? ( ex. Call back, etc..) CALL BACK documented in this encounter Plan of Treatment Not on file documented as of this encounter Visit Diagnoses Not on filedocumented in this encounter Additional Health Concerns Infection Onset Date Last Indicated Resolved Time COVID-19 Under Investigation 09/25/2020 09/25/2020 09/26/2020 5:13 AM CDT documented as of this encounter Care Teams Feather Separator Relationship Specialty Start Date End Date Bandar De Jesus MD [address] [address] PCP - General Family Medicine 05/06/20 Bandar De Jesus MD [address] [address] PCP - Attributed-[facility] Commercial 02/10/21 2 documented as of this encounter
--- OUTSIDE RECORDS SUMMARY | 2025-03-29 09:54 | XMS_ITS | Data Portability ---
Author Organization [facility] Address [address] [place] [address] Assessment No assessment recorded. Plan of Treatment Reminders Order Date Submit Date Provider Last Modified By Organization Details Last Modified Time Details Appointments None recorded. Lab None recorded. Referral pelvic floor therapy referral 2022 023 [facility], [address] [place] [address] , [address], [place], [address], 4 10:34:34 Procedures None recorded. Surgeries None recorded. Imaging None recorded. Medication Orders None recorded. Patient TargetsNo targets recorded. Patient InstructionsNo instructions recorded. Reason for Referral Pelvic Floor Therapy Referra l for Uterine prolapse Referring Physician: Laurent Castro, CONVERTIBLE [employer] BEDSPRING TESTER, Encounter Date: 05/29/2023 Procedures Surgical History Date Name Laterality Status Provider Name and Address Organization Details Recorded Time 06/12/19 21 Date of Last Pap Smear completed Felicia Montilla [employer] 05/29/2023 14:30:46 tonsillectomy completed Felicia Tomrosa isela [employer] 05/29/2023 14:32:37 Imaging Results None recorded. Procedure Notes None recorded. Medical Equipment None Reported. Allergies Allergen ID Allergen Name Allergen Category Reaction Reaction Severity Criticality Documentation Date Start Date Code Code System Note Provider Name and Address Organization Details Recorded Time 373610 latex environme nt,medica tion Not available Not available low 05/29/2023 16064 91 RxNorm Felicia Couchkezia patterson [employer] IV 3 14:30:26 Medications Name Sig Start Date Stop Date Status Note LastModified by Organization Details LastModified Time fluconazole 150 mg tablet TAKE 1 TABLET BY MOUTH RIGHT AWAY 05/29 completed Not Available Not Available Not Available prednisone 20 mg tablet TAKE 2 TABLETS BY MOUTH EVERY DAY FOR 5 DAYS 05/29 completed Not Available Not Available Not Available valacyclovir 500 mg tablet TAKE 1 TABLET BY MOUTH ONCE DAILY 05/29 completed Not Available Not Available Not Available amoxicillin 875 mg tablet TAKE 1 TABLET BY MOUTH EVERY 12 HOURS FOR 7 DAYS 05/29 completed Not Available Not Available Not Available fluticasone propionate 50 mcg/actuatio n nasal spray,suspen huber USE 2 SPRAYS IN EACH NOSTRIL DAILY 05/29 completed Not Available Not Available Not Available amoxicillin 875 mg-potassium clavulanate 125 mg tablet TAKE 1 TABLET BY MOUTH EVERY 12 HOURS 05/29 completed Not Available Not Available Not Available Vitals Date Recorded Body height Body mass index (BMI) Body weight Body temperature Systolic And Diastolic Provider Name and Address Organization Details Last Updated DateTime 05/29/2023 165.1 cm 23.1 kg/m2 04782.6 2 g 98 [degF] 110/64 mm[Hg] Felicia Santosrosa isela [employer] 14:30:01 Social History Question Answer Notes LastModified by Organizat ion Details LastModified Time Tobacco Smoking Status Current Every Day Smoker Felicia Santosrosa isela patterson, [employer] 05/29/2023 14:21:34 Are You Blind Or Do You Have Difficulty Seeing? No Information not available 05/29/2023 Are You Deaf Or Do You Have Serious Difficulty Hearing? No Information not available 05/29/2023 What Type Of Diet Are You Following? REGULAR Information not available 05/29/2023 Which Illicit Or Recreational Drugs Have You Used? Marijuana Information not available 05/29/2023 What Is Your Relationship Status? Domestic Partner Information not available 05/29/2023 Are You Sexually Active? Yes Information not available 05/29/2023 At What Age Did You Start Smoking Tobacco? 15 Information not available 05/29/2023 Have You Used IV Drugs? No Information not available 05/29/2023 Sex: Unknown Functional Status Question Answer Note LastModified by Organizat ion Details LastModified Time Do you use any illicit or recreational drugs? Yes Information not available 05/29/2023 Do you or have you ever used any other forms of tobacco or nicotine? No Information not available 05/29/2023 What is your level of alcohol consumption? Occasional Information not available 05/29/2023 What is your exercise level? None Information not available 05/29/2023 Mental Status None recorded. Family History Relationship Description Onset Age of this Age Resolved Age Notes LastModified by Organization Details LastModified Time Mother Heart disease Not available 05/12 14:21:11 Paternal Grandfather Malignant neoplastic disease Not available 05/12 14:21:20 Medical History Condition Response Anxiety Disorder Y Herpes (HSV) Y Depression Y Gynecological History Statement/Question Response Date of Last Colonoscopy Date of last HPV 06/12/2020 Date of LMP 05/20/2023 Most Recent Bone Density Date of Last Pap Smear 06/12/2020 Most Recent Mammogram Current Control Method None Age at Menarche 14 Obstetrics History GPAL:G 2 P 2 0 0 2 Type Value Full Term 2 Living 2 Total 2 Past Encounters Encounter ID Performer Location Encounter Start Date Encounter Closed Date Diagnosis/Indication Diagnosis SNOMED-CT Code Diagnosis ICD10 Code Diagnosis IMO Codes Diagnosis Note [id number] Laurent Castro, [facility] [address] [place] [address] 05/29/2023 14:16:26 05/30/2023 10:25:10 Uterine prolapse 78242875 N81.4 Recommende d pelvic floor physical therapy. If symptoms persist or get worse, advised her to return for different treatment option. Health Concerns Section Related Observation LastModified by Organization Detai ls LastModified Time None Recorded Concern Status LastModified by Organization Details LastModified Time None Recorded Advance Directives Directive None Recorded Payers None recorded. Notes Date Note Type Note Provider Name and Address Organization Details Recorded Time 05/29/2023 text/html Pelvic ProlapseReported by PatientHPIFor associated symptoms, patient reportsstress incontinence. For quality, patient reportspelvic pressure,feeling of something bulging from vagina, andirritation. For severity, patient reportsintermittent.Sh e states that she feels discomfort during sexual intercourse. She has tried Kegel exercises in the past without any help.ROS as noted in the HPI The patient verbally consented to documentation via virtual scribe for this encounter. Laurent Castro, DO [address] [facility], [place], [address], [facility] 05/29/2023 15:11:26 OBGyn Episode Ob Episode Information Episode Created Date Number of Fetuses Patient Bloodtype Patient rh Status Prepregnancy Weight lbs Domestic Partner Domestic Partner Phone Father Name Electronics Inspector Status 05/29/20 1 CLOSED Fetus Data First Name Last Name Admitted to NICU Weight (g) Sex Living Outcome Pediatric Complications Fetus ID Race Codes Race Delivery Type 2863.07 2704 F Full Term [id number] Gregor Calculation Initial Gregor Date Initial Exam Date Initial Exam Provider Initial Ultrasound Date Last Menstrual Period Date Ultra Sound Weeks Gestation 0 Eighteen To Twenty Week Gregor Update Ultra Sound Date Fundal Height At Umbil Quickening Date Ultra Sound Latest Weeks Gestation Final Gregor Confirmed By Final Gregor Confirmed Date Final Gregor Date Ultra Sound Latest Days Gestation 0 0 Menstrual History Last Menstrual Date Menses Monthly On Bcp Conception Prior Menses Frequency Hcg Plus Date Menarche Onset Age Delivery Information Delivery Date Delivery Type Labor Anesthesia Weeks Gestation Incision Type Labor Labor Length Hrs Delivered By Post Complications Tubal Sterilization Discharge Date Comments 4 38 Discharge Information Feeding Method Contraceptive Method Maternal HG B and HCT Levels Ob Episode Information Episode Created Date Number of Fetuses Patient Bloodtype Patient rh Status Prepregnancy Weight lbs Domestic Partner Domestic Partner Phone Father Name Electronics Inspector Status 05/29/20 23 1 CLOSED Fetus Data First Name Last Name Admitted to NICU Weight (g) Sex Living Outcome Pediatric Complications Fetus ID Race Codes Race Delivery Type 3458.63 9 M Full Term [id number] Gregor Calculation Initial Gregor Date Initial Exam Date Initial Exam Provider Initial Ultrasound Date Last Menstrual Period Date Ultra Sound Weeks Gestation 0 Eighteen To Twenty Week Gregor Update Ultra Sound Date Fundal Height At Umbil Quickening Date Ultra Sound Latest Weeks Gestation Final Gregor Confirmed By Final Gregor Confirmed Date Final Gregor Date Ultra Sound Latest Days Gestation 0 0 Menstrual History Last Menstrual Date Menses Monthly On Bcp Conception Prior Menses Frequency Hcg Plus Date Menarche Onset Age Delivery Information Delivery Date Delivery Type Labor Anesthesia Weeks Gestation Incision Type Labor Labor Length Hrs Delivered By Post Complications Tubal Sterilization Discharge Date Comments 0 40 Discharge Information Feeding Method Contraceptive Method Maternal HG B and HCT Levels
[2025-03-29 10:07] VITALS: BP 121/80; PULSE 72; RESP 16; O2SAT 98
--- OUTSIDE RECORDS SUMMARY | 2025-03-29 10:21 | XMS_ITS | Clinical Summary ---
Author Organization [facility] Address [address] [place] [address] Phone Care Team Providers Care Data Recovery Planner Name Role Phone Unavailable Primary Care Provider Unavailabl e Allergies No known active allergies Medications cyclobenzaprine (FLEXERIL) 10 mg tablet Take 1 Tablet (10 mg) by mouth 3 times daily as needed for Pain. 30 Tablet 03/11/2020 Active ondansetron (ZOFRAN ODT) 4 mg Tablet, Rapid Dissolve Take 1 Tablet (4 mg) by mouth every 8 hours as needed for Nausea. Dissolve tablet on top of tongue, then swallow with saliva. 30 Tablet 03/11/2020 Active butalbital-acet aminophen-caffe ine (FIORICET) 50-325-40 mg tablet Take 1 Tablet by mouth every 4 hours as needed for Headaches. 30 Tablet 03/11/2020 Active valACYclovir (VALTREX) 500 mg tablet Take 1 tablet (500 mg total) by mouth daily 90 Tablet 4 06/15/2022 Active Social History Tobacco Use Types Packs/Day Years Used Date Smoking Tobacco: Some Days Smokeless Tobacco: Never Alcohol Use Standard Drinks/Week Comments Yes 0 (1 standard drink = 0.6 oz pur e alcohol) Comments No Sex and Gender Information Value Date Recorded Sex Assigned at Not on file Legal Sex Female 9:35 PM CDT Gender Identity Not on file Sexual Orientation Not on file Last Filed Vital Signs Vital Sign Reading Time Taken Comments Blood Pressure 126/100 03/11/2020 6:54 PM CDT Pulse 93 03/11/2020 6:54 PM CDT Temperature 36.8 C (98.2 F) 03/11/2020 5:22 PM CDT Respiratory Rate 18 03/11/2020 6:54 PM CDT Oxygen Saturation 100% 03/11/2020 6:54 PM CDT Inhaled Oxygen Concentration - - Weight 59 kg (130 lb) 03/11/2020 5:22 PM CDT Height 167.6 cm (5' 6) 03/11/2020 5:22 PM CDT Body Mass Index 20.98 03/11/2020 5:22 PM CDT Plan of Treatment Health Maintenance Due Date Last Done Comments HEPATITIS B VACCINES (1 of 3 - 19+ 3-dose series) 07/2010 HPV/Cotest (21-29) 10/11/2012 HPV VACCINES (1 - 3-dose SCDM series) 10/11/2018 CERVICAL CANCER SCREENING 10/11/2021 HPV/Cotest (30-65) 10/11/2021 PAP SMEAR 10/11/2021 DTAP/TDAP/TD VACCINES (2 - Td or Tdap) 12/11/2023 INFLUENZA VACCINE (#1) 2025 Insurance [employer] (INTERNAL) [facility] [employer] [facility]
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
--- OUTSIDE RECORDS SUMMARY | 2025-03-29 10:21 | XMS_ITS | Encounter Summary ---
Author Organization [facility] Health Address [address] [facility] [place] [address] Care Team Providers Care Filer Finish Name Role Phone Bandar De Jesus MD Primary Care Provider [phone] Bandar De Jesus MD Unavailable [phone] Reason for Visit * Reason Onset Date Comments Patient Requested Call 09/26/2020 Encounter Details Date Type Department Care Team (Late st Contact Info) Description 09/26/2020 Telephone [facility] [facility] [address] [facility] [address], [address] [place] [address] Vero Strange W, [facility] [address] [place] [address] Patient Requested Call Social History Tobacco Use [...] AM CDT 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
--- OUTSIDE RECORDS SUMMARY | 2025-03-29 10:21 | XMS_ITS | Clinical Summary ---
Author Organization [facility] Address [address] [address] Phone Care Team Providers Care Holistic Pulser Name Role Phone Kristin Mccabe MD Primary [...] Completed 08/08/1996 , 01/16/1996, 11/28/1995 Insurance [employer] [facility] Care Teams Holistic Pulser Relationship Specialty Start Date End Date Kristin Mccabe MD PCP - General Family Practice 04/01/22
--- OUTSIDE RECORDS SUMMARY | 2025-03-29 10:21 | XMS_ITS | Clinical Summary ---
Author Organization [facility] Address [address] [place] [address] Care Team Providers Care Rn Transitional Name Role Phone Bandar De Jesus MD Primary Care Provider Source Comments [facility],non-owned Affiliates and Associated Physician Practices is amultiple site organization consisting of ambulatory clinics and hospital sitesin [place], [place], [place] and [place]. This disclosure is being madepursuant to the Care Everywhere program and may not contain all information available regarding this patient. 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 Not on file Not on file Not on file Last Filed Vital Signs Vital Sign Reading Time Taken Comments Blood Pressure 125/77 08/12/2021 1:35 PM [employer] Pulse 107 08/12/2021 1:35 PM [employer] Temperature 36.7 C (98.1 F) 03/09/2021 1:51 PM CDT Respiratory Rate 20 08/12/2021 1:35 PM [employer] Oxygen Saturation 100% 08/12/2021 1:35 PM [employer] Inhaled Oxygen Concentration - - Weight 59.6 kg (131 lb 8 oz) 08/12/2021 1:35 PM [employer] Height 167.6 cm (5' 6) 08/12/2021 1:35 PM [employer] Body Mass Index 21.22 08/12/2021 1:35 PM [employer] Plan of Treatment Health Maintenance Due Date [...] patient's age to complete this topic Insurance [place]ICA[place] - [employer] [facility] Advance Directives * Full Code (Latest Code Status on File) Date Activated Date Inactivated Comments 12/31/2013 2:47 PM 01/02/2014 2:23 PM * Full Code Date Activated Date Inactivated Comments 08/17/2009 7:44 AM 08/20/2009 1:38 AM Care Teams Rn Transitional Relationship Specialty Start Date End Date Bandar De Jesus MD [address] [id number] PCP - General Family Medicine 05/06/20
[2025-03-29 10:28] LABS: BEDSIDEPREGUCG Negative (Negative)
--- NOTE | 2025-03-29 10:28 | ED_ITS ---
HPI - Female Genitourinary General Chief complaint: Urogenital-Female Stated complaint: Urinary Issues, Blood in urine Time Seen by Provider: 03/29/25 10:05 History of Present Illness HPI Narrative: This is a 34-year-old female with recent history of obstructing left ureteral stone with stent placed yesterday who presents the ED for concerns for sepsis. Patient states that she was admitted to this hospital for concerns sepsis an obstructing left stone ended up going outside to smoke but was told that she was unable to return. She states that she was offered to come to the ER evaluation but she did not want to do that so she went home. She woke up this morning, she had some puffiness below her eyes so she was concerned that this was sepsis. She took an amoxicillin dose that she had left over from a prior infection home and that improved but she wanted be evaluated. Denies fevers, chills, dysuria. Related Data Allergies Allergy/AdvReac Type Severity Reaction Status Date / Time latex Allergy Mild Rash Verified 03/28/25 13:07 codeine AdvReac Severe Dizziness Verified 03/28/25 13:07 Review of Systems 2 Review of Systems: Gen.: Denies fevers or chills Eyes: Denies eye pain or visual change ENT: Denies congestion Respiratory: Denies shortness of breath or cough CV: Denies chest pain or palpitations GI: Denies abdominal pain nausea, emesis or diarrhea denies burning, urgency, frequency or hematuria Musculoskeletal: Denies back pain or muscle pain Neuro: Denies numbness, tingling, weakness or focal weakness Skin: Denies rash Except as documented, all other systems reviewed and negative [facility] Social History Social History Smoking status: Former smoker Tobacco type: cigarettes Smoking end date: 03/28/12 Alcohol intake: never Substance use: current Substance use type: marijuana Last use: 03/28/25 Lack of Transportation: No Lack of Food: Sometimes True Current Housing: I Have Housing Concerned About Future Housing: No Difficulty Paying Gas/Electric Bills: YES Difficulty Paying for Meds: No Currently Unemployed: No Education: Don't Know Difficulty w/ Childcare or Family Care: No Spiritual care concerns: No Exam 2 Narrative: APPEARANCE: No acute distress, nontoxic, resting in bed EYES: EOMI HEENT: Normocephalic, atraumatic, OMM RESPIRATORY: No respiratory distress Clear to auscultation bilaterally with no rhonchi wheezing or rales. CARDIOVASCULAR: Regular rate and rhythm without murmurs rubs or gallops. ABDOMINAL: Soft, nontender, nondistended, no rebound or guarding MUSCULOSKELETAl: Moves all extremities. No clubbing, cyanosis or edema. NEURO: Awake and alert. Following commands, speech normal, no focal deficits SKIN:: Warm, dry. No rashes lesions or abrasions PSYCHIATRIC: Normal affect/mood, Course Vital Signs Vital signs: Vital Signs Pulse Rate 72 03/29/25 10:07 Respiratory Rate 16 03/29/25 10:07 Blood Pressure 121/80 03/29/25 10:07 Pulse Oximetry 98 03/29/25 10:07 Temperature 98.5 F 03/29/25 10:51 Pulse Rate 63 03/29/25 11:31 Respiratory Rate 21 H 03/29/25 11:31 Blood Pressure 115/81 03/29/25 11:31 Pulse Oximetry 99 03/29/25 11:31 Oxygen Delivery Room Air 03/29/25 10:51 MDM - Female Genitourinary MDM Narrative Medical decision making narrative: 34-year-old female presenting for concerns for sepsis. On initial evaluation, patient was in no acute distress, afebrile, hemodynamically stable. Heart and lungs clear. Abdomen soft nontender. Records reviewed, summary below. Labs recheck today, CBC and CMP were without significant abnormalities, hypokalemia and lactic acidosis had resolved. He has no evidence of UTI this time. Hematuria likely related to the stent does place. Given that she had left AMA/eloped, I did consult Dr. Ayoub, urology, agrees that patient can discharge home at this time, has no reasons for admission from a urologic standpoint. I discussed this with the patient and she is agreeable to this plan. She will be given prescription for amoxicillin. She was advised follow-up with Urology next week. Patient was agreeable to the plan. Given strict return precautions. Differential Diagnosis Differential diagnosis: Likely urinary tract infection and other (ureterolithiasis, sepsis, dehydration, electrolyte abnormality) Medical Records Attestation: I reviewed the patient's medical records. Medical records narrative: Records from admission 03/28: Patient had a 3 mm obstructing left stone in the UVJ with hydronephrosis. She had a stent placed. There is no clear documentation on the circumstances in which she left the hospital. 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 She was advised to go back to the ER for re-evaluation if she desired. Lab Data Attestation: I reviewed the patient's lab results. 03/29/25 10:49 03/29/25 10:49 Labs: Lab Results 03/29/25 03/29/25 03/29/25 Range/Units 10:19 10:26 10:49 WBC 7.7 (4.5-10.0) K/mm3 RBC 3.96 L (4.2-5.4) M/mm3 Hgb 12.3 (12.0-15.0) g/dL Hct 36.8 L (37.0-47.0) % MCV 92.9 (80-100) fl MCH 31.1 (26-34) pg MCHC 33.4 (32-36) g/dl RDW 12.7 (11.5-14.5) % Plt Count 228 (150-375) k/mm3 MPV 9.1 (7.4-10.4) fl Immature Gran % (Auto) 0.4 (0-0.5) % Neut % (Auto) 65.3 (45.5-73.1) % Lymph % (Auto) 27.6 (18.3-44.2) % [place] % (Auto) 6.1 (2.6-8.5) % Eos % (Auto) 0.5 (0-4.4) % Baso % (Auto) 0.1 L (0.2-1.2) % Lymph # (Auto) 2.13 (0.9-3.2) K/mm3 [place] # (Auto) 0.5 (0.1-0.6) K/mm3 Eos # (Auto) 0.0 (0-0.3) K/mm3 Baso # (Auto) 0.0 (0.0-0.1) K/mm3 Abs Immat Gran (auto) 0.03 (0.00-0.031) K/mm3 Absolute Neuts (auto) 5.0 (1.3-6.7) K/mm3 Absolute Nucleated RBC 0.000 (0.0-0.012) K/mm3 Nucleated RBC % 0.0 (0.0-0.2) % Sodium 142 (137-145) mmol/L Potassium 3.6 (3.4-5.0) mmol/L Chloride 110 H (98-107) mmol/L Carbon Dioxide 23 (22-30) mmol/L Anion Gap 9 (4-12) mmol/L BUN 6 L (7-17) mg/dL Creatinine 0.56 L (0.7-1.0) mg/dL Estim Creat Clear Calc 113 ml/min Estimated GFR > 60 (59 - ) Glucose 79 (65-110) mg/dL Lactic Acid 1.7 (0.7-2.0) mmol/L Calcium 8.7 (8.4-10.2) mg/dL Total Bilirubin 0.3 (0.2-1.3) mg/dL AST 46 H (14-36) U/L ALT 31 (6-35) U/L Alkaline Phosphatase 87 (38-126) U/L Total Protein 7.1 (6.3-8.2) g/dL Albumin 4.1 (3.5-5.1) g/dL Urine Color Yellow (Yellow) Urine Appearance Clear (Clear) Urine pH 7.0 (5.0-9.0) Ur Specific [place] 1.005 (1.001-1.035) Urine Protein Trace (Negative) mg/dL Urine Glucose (UA) Negative (Negative) mg/dL Urine Ketones Negative (Negative) mg/dL Ur Blood (Man) 3+ H (Negative) Urine Nitrate Negative (Negative) Urine Bilirubin Negative (Negative) Urine Urobilinogen 0.2 (<2.0) mg/dL Add Ur Microanalysis Reviewed Leukocyte Esterase Rfl 1+ H (Negative) EVITA/UL Urine RBC 51-100 H (0-2) /hpf Urine WBC 0-5 (0-3) /hpf Ur Squamous Epith Cells None seen (Few) /hpf Urine Bacteria None seen /hpf Urine Casts 0-2 POC Urine HCG, Qual Negative (Negative) Urine Test Negative Discharge Plan Discharge Clinical Impression: Ureterolithiasis UTI (urinary tract infection) Qualifiers: Urinary tract infection type: acute cystitis Hematuria presence: with hematuria Qualified Code(s): N30.01 - Acute cystitis with hematuria Patient Disposition: Home Condition: Stable Instructions: Antibiotic Form, Kidney Infection (ED) Additional Instructions: Take amoxicillin as prescribed. Follow-up with Dr. Lubin, urology, in the next week for re-evaluation. Return to the ED for any new or worsening symptoms. Patient Language: Sami Prescriptions: New amoxicillin 500 mg capsule 500 mg PO Q12H Qty: 14 0RF Follow-up/Referrals: Elfego Sierra MD [Physician, Urology] UNKNOWN,DOCTOR [Non-Staff]
[2025-03-29 10:30] LABS: Pregnancy On Board Control Positive
[2025-03-29 10:37] LABS: Add Urine Microscopic? YES; Appearance Urine Clear (Clear); Glucose Urine UA Negative (Negative); Leukocyte Esterase Ur 1+ LEU/UL (Negative); Need Manual Microscopic Reviewed; Nitrate Urine Negative (Negative); Non Pathogenic Casts 0-2; Specific Grav Ur 1.005 (1.001-1.035)
[2025-03-29 10:40] VITALS: BP 110/70; PULSE 60; RESP 14; O2SAT 99
[2025-03-29 10:51] VITALS: BP 110/70; PULSE 74; RESP 16; TEMP 36.9; O2SAT 98
[2025-03-29 10:54] LABS: Hematocrit 36.8 % (37.0-47.0); Hemoglobin 12.3 g/dL (12.0-15.0); Immature Granulocyte Percent A 0.4 % (0-0.5); Lymphocytes Absolute Auto 2.13 K/mm3 (0.9-3.2); Mean Corpuscular HGB Conc 33.4 g/dl (32-36); Mean Corpuscular Hemoglobin 31.1 pg (26-34); Mean Corpuscular Volume 92.9 fl (80-100); Nucleated Red Blood Cells Absolute Auto 0.000 K/mm3 (0.0-0.012); Nucleated Red Blood Cells Perc 0.0 % (0.0-0.2); Platelet Count Result 228 k/mm3 (150-375); Red Blood Count 3.96 M/mm3 (4.2-5.4); White Blood Count 7.7 K/mm3 (4.5-10.0)
[2025-03-29 11:01] VITALS: BP 112/77; PULSE 71; RESP 18; O2SAT 99
[2025-03-29 11:13] LABS: Alanine Aminotransferase 31 U/L (6-35); Albumin Level 4.1 g/dL (3.5-5.1); Alkaline Phosphatase 87 U/L (38-126); Anion Gap 9 mmol/L (4-12); Aspartate Amino Transferase 46 U/L (14-36); Bilirubin,Total 0.3 mg/dL (0.2-1.3); Blood Urea Nitrogen 6 mg/dL (7-17); Calcium 8.7 mg/dL (8.4-10.2); Carbon Dioxide 23 mmol/L (22-30); Chloride 110 mmol/L (98-107); Estimated CRCL calculation 113 ml/min; Estimated Glomerular Filt Rate > 60; Glucose 79 mg/dL (65-110); Potassium 3.6 mmol/L (3.4-5.0); Sodium 142 mmol/L (137-145); Total Protein 7.1 g/dL (6.3-8.2)
[2025-03-29 11:31] VITALS: BP 115/81; PULSE 63; RESP 21; O2SAT 99
== END 2025-03-29 12:26 | disposition home or self-care (01) ==
PROVIDERS: Emergency Provider Student in an Organized Health Care Education/Training Program
DX: N13.2 Hydronephrosis with renal and ureteral calculous obstruction (principal); N30.01 Acute cystitis with hematuria; F17.200 Nicotine dependence, unspecified, uncomplicated
CPT/HCPCS: 36415; 80053; 81001; 81025; 83605; 85025; 87086; 99283